=== PATIENT | male | born 1975 | race Caucasian/White ===

== ENCOUNTER 2024-02-11 15:44 | Outpatient (CLI) | payer MEDICAID | END 2024-02-11 23:59 | disposition home or self-care (01) | LOC: RAD 15:44 | PROVIDERS: ATTEND Podiatrist Foot & Ankle Surgery | DX: M19.072 Primary osteoarthritis, left ankle and foot (principal); M25.872 Other specified joint disorders, left ankle and foot; M85.672 Other cyst of bone, left ankle and foot; M25.772 Osteophyte, left ankle; M77.32 Calcaneal spur, left foot; M25.472 Effusion, left ankle; M79.672 Pain in left foot | CPT/HCPCS: 73700 ==